=== PATIENT | female | born 1990 ===

== ENCOUNTER 2022-04-26 00:28 | Inpatient (IN) | payer OTHER ==
[~2022-04-26] VITALS: Ht 160 cm; Wt 82.6 kg
[2022-04-26] MEDS ORDERED: OMEGA 3 1,0001 EACH (02:39)
[2022-04-26] MEDS ORDERED: PRENATAL TABLE1 EAC3 (02:40)
== END 2022-04-28 14:14 | disposition home or self-care (01) | DRG 807 ==
LOC: OBS/DEL 00:28 → LDR 04:04 → OB/GYN 15:09
PROVIDERS: ADMIT Obstetrics & Gynecology; ATTEND Obstetrics & Gynecology
PROC: 10E0XZZ Delivery of Products of Conception, External Approach (ICD-10-PCS; principal; 2022-04-26)
PROC: 0UQG7ZZ Repair Vagina, Via Natural or Artificial Opening (ICD-10-PCS; 2022-04-26)
PROC: 4A1HXCZ Monitoring of Products of Conception, Cardiac Rate, External Approach (ICD-10-PCS; 2022-04-26)
DX: O71.4 Obstetric high vaginal laceration alone (principal); Z37.0 Single live birth; Z3A.38 38 weeks gestation of pregnancy; Z20.822 Contact with and (suspected) exposure to COVID-19